=== PATIENT | female | born 1980 | race Caucasian/White ===

== ENCOUNTER 2024-08-05 21:35 | Emergency (ER) | payer OTHER, SELFPAY ==
--- OUTSIDE RECORDS SUMMARY | 2024-08-05 21:37 | XMS_ITS | Clinical Summary ---
Author Organization [facility] Address [address] [place] [address] Care Team Providers Care Rn Hematology Name Role Phone Clarisse Brewer MD Primary Care Provider Allergies Active Allergy Reactions Criticality Noted Date Comments Codeine Rash 04/29/2010 Medications multivitamin (MVI) tablet Take 1 tablet by mouth once daily. 0 06/27/2018 Active FLUoxetine 20 mg capsuleIndicati ons:MDD (major depressive disorder), recurrent episode, moderate (HC),CLINT (generalized anxiety disorder) Take 1 Capsule (20 mg) by mouth once daily in the morning. 100 Capsule 3 05/01/2024 Active FLUoxetine 40 mg capsuleIndicati ons:MDD (major depressive disorder), recurrent episode, moderate (HC),CLINT (generalized anxiety disorder) Take 1 Capsule (40 mg) by mouth once daily in the morning. 100 Capsule 3 06/18/2024 Active Active Problems Problem Noted Date Diagnosed Date Depression, recurrent 06/27/2018 Anxiety 06/27/2018 Vegetarian diet 05/22/2016 Encounters Date Type Department Care Team Description 08/03/2024 Travel 06/18/2024 E-Visit [facility] [address] [place] [address] Clarisse Brewer MD Questionnaire Submission from Last 3 Months Immunizations Immunization Administration Dates Next Due COVID-19 vaccine ([employer] 30mcg/0.3mL) STARLA Ceja 06/19/2020,05/29/2020 Influenza, IIV3 (Age >=3 years) 02/07/2010 Influenza, IIV4 10/23/2019 TD, UNSPECIFIED 11/16/2001 Td (Age >=7 Years) 11/16/2001 Td, Preservative Free (age >= 7 Years) 2 Tdap 01/28/2020,08/23/2018 Tuberculin (PPD) 12/23/2009 Family History Medical History Relation Name Comments No Known Problems Daughter Nova Alcoholism Father COPD Maternal Grandfather Emphyse ma Dementia Maternal Grandfather Hyperlipidemia Maternal Grandfather Hyperlipidemia Maternal Grandmother Hypertension Maternal Grandmother Lung cancer Maternal Grandmother Colitis Mother Hyperlipidemia Mother Hypertension Mother Vertigo Mother Unknown Paternal Grandfather Unknown Paternal Grandmother Asthma Sister 1 May Migraines Sister 1 May Alcoholism Sister 2 Kristi Mental illness Sister 2 Kristi Cancer-breast No Family History Cancer-ovarian No Family History Relation Name Status Comments Daughter Nova Alive Father Maternal Grandfather Maternal Grandmother Mother Alive Paternal Grandfather Other Paternal Grandmother Other Sister 1 May Alive Sister 2 Kristi Alive Social History Tobacco Use Types Packs/Day Years Used Date Smoking Tobacco: Former Cigarettes 0.3 4 1 999 - 2002 Smokeless Tobacco: Never Tobacco Cessation:Counseling Given: Yes Alcohol Use Standard Drinks/Week Comments Not Currently 0 (1 standard drink = 0.6 oz pur e alcohol) Sober since 2006 PHQ-2 Answer Date Recorded PHQ-2 TOTAL SCORE 2 06/18/2024 Social Connections Answer Date Recorded Do you often feel lonely or isolated from those around you? 0 12/02/2023 Financial Resource Strain Answer Date R ecorded Difficulty of Paying Living Expenses 3 12/02/2023 Difficulty of Paying Living Expenses Not on file 12/02/2023 Food Insecurity Answer Date Recorded Do you worry your food will run out before you are able to buy more? 1 12/02/2023 Transportation Needs Answer Date Record ed Does lack of transportation keep you from medica l appointments? 1 12/02/2023 Does lack of transportation keep you from work, meetings or getting things that you need? 1 12/02/2023 Housing Stability Answer Date Recorded What is your housing situation today? 1 12/02/2023 Utilities Answer Date Recorded Do you have trouble paying f or utilities (for example, heat, electricity, water, phone)? 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 file Not on file Not on file Obstetrics History Para Term AB IAB SAB Ectopic Multiple Livin g Live Births 4 4 4 Date Outcome GA Total Labor Labor/2nd/3rd Weight Sex Type Anes PTL Aby A1 A5 Name Clin 009 Term F Vag Nova 013 Term F Vag Micaela Comments:Serrogate pre gnancy for another family 015 Term M Vag Carlos Comments:Serrogate pre gnancy for another family 021 Term M Vag Mihai Complications:HELLP syndrome Comments:Serrogate pre gnancy for another family Last Filed Vital Signs Vital Sign Reading Time Taken Comments Blood Pressure 100/62 05/01/2024 2:56 PM CDT Pulse 68 05/01/2024 2:56 PM CDT Temperature 36.3 C (97.4 F) 12/02/2023 4:04 PM CDT Respiratory Rate 16 12/02/2023 4:04 PM CDT Oxygen Saturation 97% 05/01/2024 2:56 PM CDT Inhaled Oxygen Concentration - - Weight 67.9 kg (149 lb 12.8 oz) 05/01/2024 2:56 PM CDT Height 162.6 cm (5' 4) 05/01/2024 2:56 PM CDT Body Mass Index 25.71 05/01/2024 2:56 PM CDT Plan of Treatment Upcoming Encounters Date Type Department Care Team (Late st Contact Info) Description 08/08/2024 10:40 AM CDT Office Visit [facility] [address] [place] [address] [place] [address] [place] [address] 10/26/2024 4:00 PM CDT Office Visit [facility] [address] [place] [address] [place] [address] [place] [address] Health Maintenance Due Date Last Done Comments Hepatitis B series for 19+ (1 of 3 - 19+ 3-dose series) 1997 COVID-19 vaccine series ( season) 2023 12/27/2020, 06/19/2020, 05/29/2020 Influenza Vaccine (Season Ended) 2024 10/23/2019, 02/07/2010 Mammogram for age 45-75 03/12/2025 03/12/19, 12/31/2022, 12/29/2021, Additional history exists BMI (ht and wt on same day) for age 18+ 05/01/2025 05/01/2024, 03/05/2024, 01/26/2023, Additional history exists Depression screening for age 12+ 06/18/2025 06/18/2024, 05/01/2024, 03/12/2024, Additional history exists Pap test for age 21-65 11/17/2025 , 11/17/2020, 05/21/2016 Fecal testing sDNA-FIT (Cologuard) for age 45-75 05/18/2026 05/19/2023 Lipids for age 45-75 05/01/2029 05/01/2024, 01/26/2023, 12/08/2021, Additional history exists Tetanus booster 01/27/2030 01/28/2020, 08/07, 02/07/2014 (Completed outside of [facility]), Additional history exists Tdap Completed 01/28/2020, 08/07, 02/07/2014 (Completed outside of [facility]) HIV for age 15-65 Completed 01/26/2023 Hepatitis C screening for age 18-79 Completed 01/26/2023 Pneumococcal series for age 6-49 Aged Out No longer eligible based on patient's age to complete this topic Procedures Procedure Name Priority Date/Time Associated Diagnosis Comments LIPID PANEL W REFLEX MEASURED LDL Routine 05/01/2024 3:11 PM CDT Screening, lipid XR MAMMO OTONIEL BILAT SCREEN Routine 03/12/2024 4:53 PM TIRE REPAIRMAN Visit for screening mammogram SDNA-FIT EXTERNAL (COLOGUARD) Routine 05/19/2023 7:58 PM CDT Screen for colon cancer ANTI HIV 1/2 Routine 01/26/2023 2:22 PM TIRE REPAIRMAN Encounter for screening for HIV ANTI HCV Routine 01/26/2023 2:22 PM TIRE REPAIRMAN Need for hepatitis C screening test HPV HIGH RISK Routine 11/17/2020 4:30 PM CDT Pap smear for cervical cancer screening from Last 3 Months or Most Recently Relevant to Health Maintenance Results * (ABNORMAL) LIPID PANEL W REFLEX MEASURED LDL (05/01/2024 3:11 PM CDT) [facility] CHOLESTEROL, TOTAL 183 <200 mg/dL [facility] HDL CHOLESTEROL 54 > OR = 50 mg/dL [facility] TRIGLYCERIDES 165(H) <150 mg/dL [facility] LDL-CHOLESTEROL 103(H) mg/dL (calc) [facility] Comment: Reference range: <100 Desirable range <100 mg/dL for primary prevention; <70 mg/dL for patients with CHD or diabetic patients with > or = 2 CHD risk factors. LDL-C is now calculated using the Shmuel-Srinath calculation, which is a validated novel method providing better accuracy than the Friedewald equation in the estimation of LDL-C. Shmuel FULLER et al. MARIAH. 2013;310(19): 1832-7099 (http://education.Snip2Code/faq/ZDZ888) CHOL/HDLC RATIO 3.4 <5.0 (calc) [facility] NON HDL CHOLESTEROL 129 <130 mg/dL (calc) [facility] Comment: For patients with diabetes plus 1 major ASCVD risk factor, treating to a non-HDL-C goal of <100 mg/dL (LDL-C of <70 mg/dL) is considered a therapeutic option. Blood BLOOD SPECIMEN / Unknown 05/01/2024 3:11 PM CDT 05/01/2024 3:11 PM CDT Clarisse Brewer MD CHEMISTRY Final R esult [facility] [address] [place] [address], [facility] [address] [place] [address] * XR MAMMO OTONIEL BILAT SCREEN (03/12/2024 4:53 PM TIRE REPAIRMAN) Anatomical Region Laterality Modality BREASTS, Breast Left, Breast Right Bilateral Mammography Impressions 03/13/2024 8:33 AM TIRE REPAIRMAN There is no radiographic evidence for malignancy. Recommend annual mammograms. MAMMOGRAM ASSESSMENT: ACR 1 Negative PATIENTS: You will also receive a letter with your examination results in an easy to read format. If you have questions about your results, please contact your referring provider. Narrative 03/13/2024 8:33 AM TIRE REPAIRMAN For Patients: As a result of the Century Cures Act, medical imaging exams and procedure reports are released immediately into your electronic medical record. You may view this report before your referring provider. If you have questions, please contact your health care provider. XR MAMMO OTONIEL BILAT SCREEN [[id number]] CLINICAL HISTORY: This is an asymptomatic 43 y.o. patient. INDICATION FOR EXAM: Mammogram Screening. TECHNIQUE: CC & MLO views were obtained. This study was evaluated with the assistance of Computer-Aided Detection. Breast Tomosynthesis was used in interpretation. COMPARISON FILM: Yes 12/31/22 FINDINGS: The breasts are extremely dense, which lowers the sensitivity of mammography. There are no dominant masses, suspicious micro calcifications or areas of architectural distortion. Itzel BRAVO MAMMO Final Result * SDNA-FIT EXTERNAL (COLOGUARD) (05/19/2023 7:58 PM CDT) Pathologist [facility] NONINV COLON CA DNA+OCC BLD SCRN STL-IMP Negative Negative 06/02/2023 4:25 AM CDT [facility] (CLIA #:[id number]) Comment: NEGATIVE TEST RESULT. A negative Cologuard result indicates a low likelihood that a colorectal cancer (CRC) or advanced adenoma (adenomatous polyps with more advanced pre-malignant features) is present. The chance that a person with a negative Cologuard test has a colorectal cancer is less than 1 in 1500 (negative predictive value >99.9%) or has an advanced adenoma is less than 5.3% (negative predictive value 94.7%). These data are based on a prospective cross-sectional study of 10,000 individuals at average risk for colorectal cancer who were screened with both Cologuard and colonoscopy. (Endy Souza al, N Engl J Med 2014;370(14):9487-0786) The normal value (reference range) for this assay is negative. COLOGUARD RE-SCREENING RECOMMENDATION: Periodic colorectal cancer screening is an important part of preventive healthcare for asymptomatic individuals at average risk for colorectal cancer. Following a negative Cologuard result, the [place] [employer] and U.S. Multi-Society Task Force screening guidelines recommend a Cologuard re-screening interval of 3 years. References: [place] [employer] Guideline for Colorectal Cancer Screening: https://www.cancer.org/cancer/dlddp-egaowd-hkwsqf/eiaoegclp-huipfkolc-dnvmuqx/ac s-rec ommendations.html.; Kenneth DK, Vania CR, Josse WrightK, Colorectal Cancer Screening: Recommendations for Physicians and Patients from the U.S. Multi-Society Task Force on Colorectal Cancer Screening , Am J Gastroenterology 2017; 112:2131-9538. TEST DESCRIPTION: Composite algorithmic analysis of stool DNA-biomarkers with hemoglobin immunoassay. Quantitative values of individual biomarkers are not reportable and are not associated with individual biomarker result reference ranges. Cologuard is intended for colorectal cancer screening of adults of either sex, 45 years or older, who are at average-risk for colorectal cancer (CRC). Cologuard has been approved for use by the U.S. FDA. The performance of Cologuard was established in a cross sectional study of average-risk adults aged 50-84. Cologuard performance in patients ages 45 to 49 years was estimated by sub-group analysis of near-age groups. Colonoscopies performed for a positive result may find as the most clinically significant lesion: colorectal cancer [4.0%], advanced adenoma (including sessile serrated polyps greater than or equal to 1cm diameter) [20%] or non- advanced adenoma [31%]; or no colorectal neoplasia [45%]. These estimates are derived from a prospective cross-sectional screening study of 10,000 individuals at average risk for colorectal cancer who were screened with both Cologuard and colonoscopy. (Endy Souza al, N Engl J Med 2014;370(14):0917-7388.) Cologuard may produce a false negative or false positive result (no colorectal cancer or precancerous polyp present at colonoscopy follow up). A negative Cologuard test result does not guarantee the absence of CRC or advanced adenoma (pre-cancer). The current Cologuard screening interval is every 3 years. ([place] [employer] and U.S. Multi-Society Task Force). Cologuard performance data in a 10,000 patient pivotal study using colonoscopy as the reference method can be accessed at the following location: www.Merge.rs AG/results. Additional description of the Cologuard test process, warnings and precautions can be found at www.OpenbucksogAtlas Wearablesrd.Petflow. Stool specimen (specimen) (Rectum) 05/19/2023 7:58 PM CDT 05/21/2023 10:48 AM CDT Clarisse Brewer MD URINE Final R esult [facility] (CLIA #:[id number]) [place] [address], * ANTI HCV (01/26/2023 2:22 PM TIRE REPAIRMAN) HEPATITIS C ANTIBODY Non-Reacti ve Non-React felix 01/26/2023 9:58 PM TIRE REPAIRMAN [facility] Comment:Please note, per www .CDC.gov: If a patient is known to be at high risk of HCV infection, or is symptomatic, and the physician's suspicion of HCV infection is high, HCV RNA testing is often employed and is of diagnostic value, even after an initial negative anti-HCV test result. Blood BLOOD SPECIMEN / Unknown Venipuncture / Unknown 01/26/2023 2:22 PM TIRE REPAIRMAN 01/26/2023 2:31 PM TIRE REPAIRMAN Clarisse Brewer MD SEND OUTS Final R esult Performing Organization Address [facility] Co de Phone Number [facility] [address] [place] [address], * ANTI HIV 1/2 (01/26/2023 2:22 PM TIRE REPAIRMAN) Pathologist [facility] HIV-1/HIV-2 SCREEN Non-Reacti ve Non-Reacti ve 01/26/2023 11:46 PM TIRE REPAIRMAN [facility] Comment:HIV-1 p24 and HIV-1/ HIV-2 Ab Not Detected. Blood BLOOD SPECIMEN / Unknown Venipuncture / Unknown 01/26/2023 2:22 PM TIRE REPAIRMAN 01/26/2023 2:31 PM TIRE REPAIRMAN Clarisse Brewer MD SEND OUTS Final R esult Performing Organization Address [facility] de Phone Number [facility] [address] [place] [address], [place] * HPV HIGH RISK (11/17/2020 4:30 PM CDT) TYPE 16 Negative Negative 11/21/2020 5:33 AM CDT [facility] TYPE 18 Negative Negative 11/21/2020 5:33 AM CDT [facility] OTHER HIGH RISK TYPES Negative Negative 11/21/2020 5:33 AM CDT [facility] Other (Cervical) Non-Blood / Unknown 11/17/2020 4:30 PM CDT 11/18/2020 6:31 PM CDT Narrative [facility] - 11/21/2020 5:33 AM CDT HPV types 16, 18, 31, 33, 35, 39, 45, 51, 52, 56, 58, 59, 66 and 68 DNA were undetectable or below the pre-set threshold. Methodology: Vito Jagdeep 4800 HPV Test us Clarisse Brewer MD MICROBIOLOGY Final R esult [facility] [address] [place] [address], [place] from Last 3 Months or Most Recently Relevant to Health Maintenance Insurance [facility] Advance Directives * Full Code (Latest Code Status on File) Date Activated Date Inactivated Comments 10/11/2013 7:55 AM 10/11/2013 2:24 PM Care Teams Rn Hematology Relationship Specialty [place] [address] [place] [address] PCP - General Family Practice 12/08/21
--- OUTSIDE RECORDS SUMMARY | 2024-08-05 21:37 | XMS_ITS | Encounter Summary ---
Author Organization [facility] Address [address] [place] [address] Care Team Providers Care Risk Tech Name Role Phone Bernadette Saldana MD Primary Care Provider Alan Shah MD Unavailable [phone] Jason Shearer MD Unavailable [phone] Charlette Garcia MD Unavailable [phone] Mari Conklin MD Unavailable [phone] Reason for Visit * Reason Onset Date Comments MyChart Communication 02/06/2020 Encounter Details Date Type Department Care Team (Late st Contact Info) Description 02/06/2020 MyC Medical Advice [facility] [address] [place] [address] Chey Ta MD [address] [place], [place] [address] MyChart Communication Social History Tobacco Use Types Packs/Day Years Used Date Smoking Tobacco: Former Cigarettes Q uit: 06/28/2007 Smokeless Tobacco: Former Alcohol Use Standard Drinks/Week Comments No 0 (1 standard drink = 0.6 oz pur e alcohol) PHQ-2 Answer Date Recorded PHQ-2 Score 0 10/23/2019 Comments Yes Sex and Gender Information Value Date Recorded Sex Assigned at Not on file Legal Sex Female 4:52 AM WEB PRESS ROLL TENDER Gender Identity Not on file Sexual Orientation Lesbian 10/16/2019 9: 45 AM CDT COVID-19 Exposure Response Date Recorded In the last month, have you been in contact with someone who was confirmed or suspected to have Coronavirus / COVID-19? No / Unsure 01/28/2020 3:46 PM WEB PRESS ROLL TENDER documented as of this encounter Miscellaneous Notes * Telephone Encounter - Jason Shearer MD - 02/06/2020 3:54 PM CST Advise Pt that her BS log shows all normal BS's. Therefore she can be considered as not being GDM. PRESS ROLL TENDER * Telephone Encounter - Kiara Belcher RN - 02/06/2020 3:27 PM CST Please see mychart for glucose log from home. Copied from recent note: no 1hr glucose due to syncope when drinks it, will do FBS and 1hr PP for next couple weeks and review at next OB appt to see if needs to get formal DM Ed consult or can stop glucose checks. Kiara Belcher RN PRESS ROLL TENDER documented in this encounter Plan of Treatment Not on file documented as of this encounter Visit Diagnoses Diagnosis Multigravida of advanced maternal age in third trimester resulting from in vitro fertilization in third trimester state, gestational carrier documented in this encounter Additional Health Concerns Infection Onset Date Last Indicated Resolved Time COVID-19 02/20/2020 02/20/2020 03/12/2020 11:3 9 PM WEB PRESS ROLL TENDER documented as of this encounter Care Teams Risk Tech Relationship Specialty Start Date End Date Bernadette Saldana MD [address] [place], [place] [address] PCP - General 10/19/07 Alan Shah MD [address] [place] [address] Assigned OBGYN Provider 12/23/19 Jason Shearer MD [address] [address] Assigned OBGYN Provider 03/02/20 Charlette Garcia MD [address], [address] [address] Assigned OBGYN Provider 03/09/20 Mari Conklin MD [address] [place] [address] Assigned OBGYN Provider 09/26/21 documented as of this encounter
--- OUTSIDE RECORDS SUMMARY | 2024-08-05 21:37 | XMS_ITS | Encounter Summary ---
Author Organization [facility] Address [address] [place] [address] Care Team Providers Care Developer Programmer Analyst Name Role Phone Bernadette Saldana MD Primary Care Provider Alan Shah MD Unavailable [phone] Jason Shearer MD Unavailable [phone] Charlette Garcia MD Unavailable [phone] Mari Conklin MD Unavailable [phone] Encounter Details Date Type Department Care Team (Late st Contact Info) Description 02/26/2020 MyC Medical Advice [facility] Women[facility] [address] [place] [address] Charlette Garcia MD [address], [facility] [address] [place], [place] [id number] Social History Tobacco Use Types Packs/Day Years Used Date Smoking Tobacco: Former Cigarettes Q uit: 06/28/2007 Smokeless Tobacco: Former Alcohol Use Standard Drinks/Week Comments No 0 (1 standard drink = 0.6 oz pur e alcohol) PHQ-2 Answer Date Recorded PHQ-2 Score 0 10/23/2019 Comments Yes Sex and Gender Information Value Date Recorded Sex Assigned at Not on file Legal Sex Female 4:52 AM FACILITY PRACTICE SPECIALIST Gender Identity Not on file Sexual Orientation Lesbian 10/16/2019 9: 45 AM CDT COVID-19 Exposure Response Date Recorded In the last month, have you been in contact with someone who was confirmed or suspected to have Coronavirus / COVID-19? No / Unsure 01/28/2020 3:46 PM FACILITY PRACTICE SPECIALIST documented as of this encounter Plan of Treatment Not on file documented as of this encounter Visit Diagnoses Not on filedocumented in this encounter Additional Health Concerns Infection Onset Date Last Indicated Resolved Time COVID-19 02/20/2020 02/20/2020 03/12/2020 11:3 9 PM FACILITY PRACTICE SPECIALIST documented as of this encounter Care Teams Developer Programmer Analyst Relationship Specialty Start Date End Date Bernadette Saldana MD [address] [address] PCP - General 10/19/07 Alan Shah MD [address] [address] Assigned OBGYN Provider 12/23/19 Jason Shearer MD [address] [address] Assigned OBGYN Provider 03/02/20 Charlette Garcia MD [address], [address] [address] Assigned OBGYN Provider 03/09/20 Mari Conklin MD [address] [place], [place] [id number] Assigned OBGYN Provider 09/26/21 documented as of this encounter
--- OUTSIDE RECORDS SUMMARY | 2024-08-05 21:37 | XMS_ITS | Encounter Summary ---
Author Organization [facility] Address [address] [place] [address] Care Team Providers Care Marine Structural Welder Name Role Phone Bernadette Saldana MD Primary Care Provider Charlette Garcia MD Unavailable [phone] Mari Conklin MD Unavailable [phone] Encounter Details Date Type Department Care Team (Late st Contact Info) Description 03/31/2020 MyC Medical Advice [facility] [address] [place] [address] Charlette Garcia MD [address] [facility], [address] [place], [place] [address] Social History Tobacco Use Types Packs/Day Years Used Date Smoking Tobacco: Former Cigarettes Q uit: 06/28/2007 Smokeless Tobacco: Former Alcohol Use Standard Drinks/Week Comments No 0 (1 standard drink = 0.6 oz pur e alcohol) PHQ-2 Answer Date Recorded PHQ-2 Score 0 10/23/2019 Comments Yes Sex and Gender Information Value Date Recorded Sex Assigned at Not on file Legal Sex Female 4:52 AM HAND BINDER STRIPPER Gender Identity Not on file Sexual Orientation Lesbian 10/16/2019 9: 45 AM CDT COVID-19 Exposure Response Date Recorded In the last month, have you been in contact with someone who was confirmed or suspected to have Coronavirus / COVID-19? No / Unsure 03/28/2020 8:21 AM HAND BINDER STRIPPER documented as of this encounter Miscellaneous Notes * Telephone Encounter - Madeleine Dawkins - 04/02/2020 9:48 AM CST Francie will get her employer to fax the FMLA form so that we can fill it out and sign Madeleine Dawkins CMA BINDER STRIPPER documented in this encounter Plan of Treatment Not on file documented as of this encounter Visit Diagnoses Not on filedocumented in this encounter Care Teams Marine Structural Welder Relationship Specialty Start Date End Date Bernadette Saldana MD [address] [place] [address] PCP - General 10/19/07 Charlette Garcia MD [address] [address] Assigned OBGYN Provider 03/09/20 Mari Conklin MD [address] [place] [address] Assigned OBGYN Provider 09/26/21 documented as of this encounter
--- OUTSIDE RECORDS SUMMARY | 2024-08-05 21:37 | XMS_ITS | Encounter Summary ---
Author Organization [facility] Address [address] [place] [address] Care Team Providers Care Health Communications Specialist Name Role Phone Bernadette Saldana MD Primary Care Provider Charlette Garcia MD Unavailable [phone] Mari Conklin MD Unavailable [phone] Encounter Details Date Type Department Care Team (Late st Contact Info) Description 04/16/2020 MyC Medical Advice [facility] [place] [address] [place] [address] Charlette Garcia MD [address] [facility], [address] [place], [place] [id number] Social History Tobacco Use Types Packs/Day Years Used Date Smoking Tobacco: Former Cigarettes Q uit: 06/28/2007 Smokeless Tobacco: Former Alcohol Use Standard Drinks/Week Comments No 0 (1 standard drink = 0.6 oz pur e alcohol) PHQ-2 Answer Date Recorded PHQ-2 Score 0 10/23/2019 Comments Yes Sex and Gender Information Value Date Recorded Sex Assigned at Not on file Legal Sex Female 4:52 AM PUBLIC WORKS LABORER Gender Identity Not on file Sexual Orientation Lesbian 10/16/2019 9: 45 AM CDT COVID-19 Exposure Response Date Recorded In the last month, have you been in contact with someone who was confirmed or suspected to have Coronavirus / COVID-19? No / Unsure 04/18/2020 8:23 AM PUBLIC WORKS LABORER documented as of this encounter Plan of Treatment Not on file documented as of this encounter Visit Diagnoses Not on filedocumented in this encounter Care Teams Health Communications Specialist Relationship Specialty Start Date End Date Bernadette Saldana MD [address] [place] [address] PCP - General 10/19/07 Charlette Garcia MD [address], [address] [address] Assigned OBGYN Provider 03/09/20 Mari Conklin MD [address] [place] [address] Assigned OBGYN Provider 09/26/21 documented as of this encounter
--- OUTSIDE RECORDS SUMMARY | 2024-08-05 21:37 | XMS_ITS | Clinical Summary ---
Author Organization [facility] Address [address] [place] [address] Care Team Providers Care Indoor Sports Centre Manager Name Role Phone Bernadette Saldana MD Primary Care Provider Allergies No known active allergies Medications Vit-Fe Fumarate-FA ( VITAMIN) 27-0.8 MG TABS Active NIFEdipine ER OSMOTIC (ADALAT CC) 30 MG 24 hr tabletIndication s:Preeclampsia in period Take 1 tablet (30 mg) by mouth daily 30 tablet 1 04/30/2020 Active Active Problems Problem Noted Date Diagnosed Date Preeclampsia in period 04/27/2020 Hemolysis, elevated liver en zymes, and low platelet (HELLP) syndrome during , delivered, with complication 04/27/2020 Indication for care in labor or delivery 021 Uterine size-date discrepancy in third trimester 03/07/2020 Clinical diagnosis of COVID-19 03/07/2020 Low-lying placenta 12/03/2019 conceived through in vitro fertilizati on 12/03/2019 AMA (advanced maternal age) multigravida 35+ state, gestational carrier 12/03/2019 Supervision of other normal , antepartu m 10/23/2019 CARDIOVASCULAR SCREENING; LDL GOAL LESS THAN 160 12/07/2009 Infertility 11/23/2007 Immunizations Immunization Administration Dates Next Due Influenza (IIV3) PF 02/07/2010 Influenza Vaccine >6 months,quad, PF 10/23/2019 Mantoux Tuberculin Skin Test 12/23/2009 TD,PF 7+ (Tenivac) 07/08/2001,02/07/2001 TDAP (Adacel,Boostrix) 01/28/2020 TDAP Vaccine (Adacel) 08/23/2018 Tdap (Adult) Unspecified Formulation 11/16/2001 Family History Medical History Relation Comments Alcohol/Drug Father Alcohol/Drug Maternal Grandfather Alzheimer Disease Maternal Grandfather Hypertension Maternal Grandfather Alzheimer Disease Maternal Grandmother Osteoporosis Maternal Grandmother Hypertension Mother Lipids Mother Relation Status Comments Daughter Alive Father Alive Maternal Grandfather Maternal Grandmother Mother Alive Paternal Grandfather Paternal Grandmother Sister 1 Alive Sister 2 Alive Social History Tobacco Use Types Packs/Day Years Used Date Smoking Tobacco: Former Cigarettes Q uit: 06/28/2007 Smokeless Tobacco: Former Tobacco Cessation:Counseling Given: No Alcohol Use Standard Drinks/Week Comments No 0 (1 standard drink = 0.6 oz pur e alcohol) PHQ-2 Answer Date Recorded PHQ-2 Score 0 10/23/2019 [place] Depression Scale Answer Date Recorded [place] Depression Score 1 04/22/2020 Last EPDS Self Harm Result Not on file 04/22 Adolescent Education Answer Date Record ed Getting School Help Needed Not on file 11/24 Comments Unknown Sex and Gender Information Value Date Recorded Sex Assigned at Not on file Legal Sex Female 4:52 AM DIRECT SALES REPRESENTATIVE Gender Identity Not on file Sexual Orientation Lesbian 10/16/2019 9: 45 AM CDT Last Filed Vital Signs Vital Sign Reading Time Taken Comments Blood Pressure 108/72 10/01/2021 7:02 PM CDT Pulse 68 10/01/2021 7:02 PM CDT Temperature 36.9 C (98.5 F) 10/01/2021 7:02 PM CDT Respiratory Rate 16 04/29/2020 9:00 AM CDT Oxygen Saturation 97% 10/01/2021 7:02 PM CDT Inhaled Oxygen Concentration - - Weight 62.6 kg (138 lb) 10/01/2021 7:02 PM CDT Height 162.6 cm (5' 4) 04/27/2020 3:05 PM CDT Body Mass Index 23.69 04/27/2020 3:05 PM CDT Plan of Treatment Health Maintenance Due Date Last Done Comments ADVANCE CARE PLANNING 1978 ANNUAL REVIEW OF HM ORDERS 1978 CT COLONOGRAPHY 1978 FIT 1978 FLEX SIG 1978 MAMMO SCREENING 1978 sDNA (Cologuard) 1978 COLONOSCOPY 1988 COLORECTAL CANCER SCREENING 1988 HEPATITIS B VACCINE (1 of 3 - 19+ 3-dose series) 1997 LIPID 2018 DIABETES SCREENING 04/30/2023 04/29/2020, 0 04/28/2020, 04/27/2020, Additional history exists COVID-19 VACCINE ( season) 2023 12/27/2020, 06/19/2020, 05/29/2020 PHQ-2 (once per calendar year) 2024 10/23/2019 INFLUENZA VACCINE (Season Ended) 2024 10/23/2019, 02/07/2010 YEARLY PREVENTIVE VISIT 05/01/2025 05/02/19, 01/26/2023, 12/08/2021, Additional history exists HPV TEST 11/17/2025 11/17/2020, 10/23/2019 PAP 11/17/2025 11/17/2020, 10/08, 05/08/2016, Additional history exists ZOSTER VACCINE (1 of 2) 2028 DTAP/TDAP/TD VACCINE (5 - Td or Tdap) 01/27/2030 01/28/2020, 08/23/2018, 11/16/2001, Additional history exists HEPATITIS C SCREENING Completed 11/14/2018 HIV SCREENING Completed 10/23/2019, 11/14/2018 HPV VACCINE Aged Out No longer eligi ble based on patient's age to complete this topic MENINGITIS VACCINE Aged Out No longer eligible based on patient's age to complete this topic PNEUMOCOCCAL VACCINE: PEDIATRICS (0 to 5 YEARS) AND AT-RISK PATIENTS (6 to 49 YEARS) Aged Out No longer eligible based on patient's age to complete this topic Procedures Procedure Name Priority Date/Time Associated Diagnosis Comments COMPREHENSIVE METABOLIC PANEL Routine 04/29/2020 7:08 AM CDT HIV ANTIGEN ANTIBODY COMBO Routine 10/23/2019 3:30 PM CDT Supervision of other normal , antepartum HPV HIGH RISK TYPES DNA CERVICAL Routine 10/23/2019 3:05 PM CDT Screening for cervical cancer PAP IMAGED THIN LAYER SCREEN Routine 10/23/2019 2:57 PM CDT Screening for cervical cancer HEPATITIS C (HIM EXTERNAL RESULT) Routine 11/14/2018 from Last 3 Months or Most Recently Relevant to Health Maintenance Results * (ABNORMAL) Comprehensive metabolic panel (04/29/2020 7:08 AM CDT) Sodium 141 133 - 144 mmol/L 04/29/2020 7:31 AM [facility] Potassium 4.7 3.4 - 5.3 mmol/L 04/29/2020 7:31 AM [facility] Chloride 114(H) 94 - 109 mmol/L 04/29/2020 7:31 AM [facility] Carbon Dioxide 22 20 - 32 mmol/L 04/29/2020 7:57 AM [facility] Anion Gap 5 3 - 14 mmol/L 04/29/2020 7:57 AM [facility] Glucose 75 70 - 99 mg/dL 04/29/2020 7:57 AM [facility] Urea Nitrogen 12 7 - 30 mg/dL 04/29/2020 7:57 AM [facility] Creatinine 0.80 0.52 - 1.04 mg/dL 04/29/2020 7:57 AM [facility] GFR Estimate >90 >60 mL/min/{1. 73_m2} 04/29/2020 7:57 AM [facility] Comment: Non GFR Calc Starting 01/24/2018, serum creatinine based estimated GFR (eGFR) will be calculated using the Chronic Kidney Disease Epidemiology Collaboration (CKD-EPI) equation. GFR Estimate If Black >90 >60 mL/min/{1. 73_m2} 04/29/2020 7:57 AM [facility] Comment: GFR Calc Starting 01/24/2018, serum creatinine based estimated GFR (eGFR) will be calculated using the Chronic Kidney Disease Epidemiology Collaboration (CKD-EPI) equation. Calcium 7.5(L) 8.5 - 10.1 mg/dL 04/29/2020 7:57 AM CDT [facility] Bilirubin Total 0.3 0.2 - 1.3 mg/dL 04/29/2020 7:57 AM CDT [facility] Albumin 2.5(L) 3.4 - 5.0 g/dL 04/29/2020 7:57 AM CDT [facility] Protein Total 5.6(L) 6.8 - 8.8 g/dL 04/29/2020 7:57 AM CDT [facility] Alkaline Phosphatase 99 40 - 150 U/L 04/29/2020 7:57 AM T [facility] ALT 101(H) 0 - 50 U/L 04/29/2020 7:57 AM CDT [facility] AST 24 0 - 45 U/L 04/29/2020 7:57 AM CDT [facility] Blood specimen (specimen) 04/29/2020 7:08 AM CDT 04/29/2020 7:09 AM CDT us Elyssa Morales DO LAB - BLOOD ORDERABLES Fi nal Result Performing Organization Address [facility]/ZIP Co de Phone Number [facility] [address] [place] [id number] [phone] * HIV Antigen Antibody Combo (10/23/2019 3:30 PM CDT) HIV Antigen Antibody Combo Nonreactive NR^Nonrea ctive 10/24/2019 5:32 PM CDT [facility] Comment:HIV-1 p24 Ag & HIV-1 /HIV-2 Ab Not Detected Blood specimen (specimen) 10/23/2019 3:30 PM CDT 10/23/2019 3:31 PM CDT us Charlette Vick MD LAB - BLOOD ORDERABLES Fi nal Result Performing Organization Address City/[facility]/ZIP Co de Phone Number [facility] [address] [place] [address] * HPV High Risk Types DNA Cervical (10/23/2019 3:05 PM CDT) HPV Source SurePath 10/23/2019 2:58 PM CDT [facility] HPV 16 DNA Negative NEG^Nega tive 10/30/2019 4:08 PM CDT [facility] HPV 18 DNA Negative NEG^Nega tive 10/30/2019 4:08 PM CDT [facility] Other HR HPV Negative NEG^Nega tive 10/30/2019 4:08 PM CDT [facility] Final Diagnosis This patient's sample is negative for HPV DNA. 10/30/2019 4:08 PM CDT [facility] Comment: This test was developed and its performance characteristics determined by the [facility], [facility]. It has not been cleared or approved by the FDA. The laboratory is regulated under CLIA as qualified to perform high-complexity testing. This test is used for clinical purposes. It should not be regarded as investigational or for research. (Note) METHODOLOGY: The Vito lynda 4800 system uses automated extraction, simultaneous amplification of HPV (L1 region) and beta-globin, followed by real time detection of fluorescent labeled HPV and beta globin using specific oligonucleotide probes . The test specifically identifies types HPV 16 DNA and HPV 18 DNA while concurrently detecting the rest of the high risk types (31, 33, 35, 39, 45, 51, 52, 56, 58, 59, 66 or 68). COMMENTS: This test is not intended for use as a screening device for women under age 30 with normal cervical cytology. Results should be correlated with cytologic and histologic findings. Close clinical followup is recommended. Specimen Description Cervical Cells 10/23/2019 2:58 PM CDT [facility] Cervical Cells 10/23/2019 3: 05 PM CDT 10/23/2019 3:39 PM CDT us Charlette Vick MD LAB - BLOOD ORDERABLES Fi nal Result [facility] [address] [place] [address] [address] * Pap imaged thin layer screen with HPV - recommended age 30 - 65 (10/23/2019 2:57 PM CDT) PAP NIL COPATH Copath Report Patient Name: GERALDINE MACDONALD MR#: [id number] Specimen #: [id number] Collected: 10/23/2019 Received: 10/25/2019 Reported: 10/27/2019 09:14 Ordering Phy(s): CHARLETTE VICK For improved result formatting, select 'View Enhanced Report Format' under Linked Documents section. SPECIMEN/STAIN PROCESS: Pap imaged thin layer prep screening (Surepath, FocalPoint with guided screening) Pap-Cyto x 1, HPV ordered x 1 SOURCE: Cervical, endocervical Pap imaged thin layer prep screening (Surepath, FocalPoint with guided screening) SPECIMEN ADEQUACY: Satisfactory for evaluation. -Transformation zone component absent. CYTOLOGIC INTERPRETATION: Negative for intraepithelial lesion or malignancy Electronically signed out by: DAVIDE Winn (ASCP) CLINICAL HISTORY: , A previous normal pap Date of Last Pap: 06/27/09, Papanicolaou Test Limitations: Cervical cytology is a screening test with limited sensitivity; regular screening is critical for cancer prevention; Pap tests are primarily effective for the diagnosis/preventi on of squamous cell carcinoma, not adenocarcinomas or other cancers. COLLECTION SITE: Client: [facility] Location: OB (R) The technical component of this testing was completed at the [facility], with the professional component performed at the [facility], [address] [place] [phone] ([phone]) ZEN Cytologic material (specimen) 10/23/2019 2:57 PM CDT 10/25/2019 8:28 AM CDT us Charlette Vick MD LAB - OPTIME CLINICAL SPE CIMEN Final Result COPATH * Hep C - HIM (11/14/2018) Hep C HIM See Scanned Document [facility] Comment:Non reactive 11/14/2018 Narrative [facility] - 11/14/2018 LAB RESULT [facility] us Provider Outside LAB - HIM EXTERNAL RESULT Final Result [facility] [address] [phone] from Last 3 Months or Most Recently Relevant to Health Maintenance Advance Directives For more information, please contact: [phone] * Full Code (Latest Code Status on File) Date Activated Date Inactivated Comments 04/28/2020 6:51 AM 04/29/2020 1:56 PM All basic an d advanced life-sustaining interventions are performed as appropriate Question Answer Comments Code status determined by: Discussion with patie nt/ legal decision maker Care Teams Indoor Sports Centre Manager Relationship Specialty Start Date End Date Bernadette Saldana MD [address] [address] PCP - General 10/19/07
--- OUTSIDE RECORDS SUMMARY | 2024-08-05 21:37 | XMS_ITS | Encounter Summary ---
Author Organization [facility] Address [address] [place] [address] Care Team Providers Care Surveillance Camera Technician Name Role Phone Bernadette Saldana MD Primary Care Provider Mirella Low MD Unavailable [phone] Alan Shah MD Unavailable [phone] Jason Shearer MD Unavailable [phone] Charlette Garcia MD Unavailable [phone] Mari Conklin MD Unavailable [phone] Reason for Referral * Diagnostic Imaging Ultrasound (Routine) - Closed Specialty Diagnoses / Procedures Referred By Contdimitrios t Referred To Contact Diagnoses Supervision of high-risk of elderly multigravida resulting from in vitro fertilization, third trimester Low-lying placenta Procedures US OB >14 Weeks Follow Up [address] [place] [address] Phone: tel: fax: Referral ID Status Reason Start Date Expiration Date Visits Re quested Visits Authorized [id number] Closed 12/03/2019 12/02/2020 1 1 Encounter Details Date Type Department Care Team (Late st Contact Info) Description 12/03/2019 Orders Only [address] [place] [address] Marlys Harvey, RN Supervision of high-risk of elderly multigravida (Primary Dx); resulting from in vitro fertilization, third trimester; Low-lying placenta Social History Tobacco Use Types Packs/Day Years Used Date Smoking Tobacco: Former Cigarettes Q uit: 06/28/2007 Smokeless Tobacco: Former Alcohol Use Standard Drinks/Week Comments No 0 (1 standard drink = 0.6 oz pur e alcohol) PHQ-2 Answer Date Recorded PHQ-2 Score 0 10/23/2019 Comments Yes Sex and Gender Information Value Date Recorded Sex Assigned at Not on file 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 No / Unsure 11/30/2019 1:19 PM CDT documented as of this encounter Plan of Treatment Not on file documented as of this encounter Procedures Procedure Name Priority Date/Time Associated Diagnosis Comments US OB BIOPHYSICAL PROFILE WO NST WO MEASURE Routine 03/28/2020 9:54 AM FURNITURE TECHNICIAN Supervision of high-risk of elderly multigravida documented in this encounter Results * US Biophys Prof w/o Non Stress Test (03/28/2020 9:54 AM FURNITURE TECHNICIAN) Anatomical Region Laterality Modality Abdomen/Pelvis Ultrasound Impressions 03/28/2020 12:19 PM FURNITURE TECHNICIAN [place] Gestation. FHR: 130 bpm Amniotic Fluid: 7.43 cm MVP presentation: Cephalic Placenta: Anterior BIOPHYSICAL PROFILE body movements: Normal (2) tone: Normal (2) breathing movements: Normal (2) Amniotic fluid volume: Normal (2) BPP Score: 8/8 Type of ultrasound performed: Transabdominal and Limited OB Amniotic fluid: wnl Biophysical Profile: reassuring 09/14 Dr. Elyssa Morales, DO Obstetrics and Gynecology [facility] Narrative 03/28/2020 12:19 PM FURNITURE TECHNICIAN [facility] Obstetrics and Gynecology ULTRASOUND - OB BIOPHYSICAL PROFILE (BPP)- Transabdominal Referring Provider: Charlette Garcia MD INDICATIONS FOR ULTRASOUND: OB History: Present Conditions: AMA, BPP CLINICAL INFORMATION EDC: 24 Apr 2020 EGA: 36 w 1d us Charlette Garcia MD IMG US ORDERABLES Final R esult * (ABNORMAL) US OB >14 Weeks Follow Up (03/14/2020 3:16 PM FURNITURE TECHNICIAN) Anatomical Region Laterality Modality Abdomen/Pelvis Ultrasound Impressions 03/16/2020 5:38 PM FURNITURE TECHNICIAN [place] Gestation. presentation: Transverse Placenta: Left Lateral, no previa, > 2 cm from internal os Grade: 0 MEASUREMENTS BPD 8.96 cm 36w2d 94.1% HC 32.90 cm 37w3d 89.6% AC 32.67 cm 36w4d 97.5% FL 6.37 cm 32w6d 13.2% HL 5.62 cm 32w5d 21.2% Heart Rate 134 bpm Amniotic fluid 7.76 cm MVP EFW (lbs/oz) 6 lbs 1ozs EFW (g) 2748 g 85.6% EDC: 04/17/20 GA by Current Scan: 35w1d correspond SURVEY Visualized: 4 Chamber Heart, Stomach, Kidneys, Bladder and Suboptimal views due to Poor Visualization Due To: position. MATERNAL ANATOMY Right Ovary: Visualized Left Ovary: Not visualized *Other Findings: placenta tip to cx anteriorly: 5.2cm Posteriorly: 2.6 cm Limited follow up obstetrical ultrasound using realtime transabdominal scanning. No gross anomalies observed; corresponding menstrual and sonographic dates. Maternal Uterus appears Normal Maternal ovaries were not visualized. Amniotic fluid assessment is: Normal. growth shows: satisfactory interval growth overall (85.6%), with AC measurement 97.5%tile. The placenta is no longer low lying, with the posterior edge to cervix measurement >2cm. Note, transverse presentation. Mari Conklin MD Obstetrics and Gynecology [facility] Narrative 03/16/2020 5:38 PM FURNITURE TECHNICIAN [facility] Obstetrics and Gynecology ULTRASOUND - OB FOLLOW UP > 14 Weeks- Transabdominal and transvaginal Referring Provider: Charlette Garcia MD INDICATIONS FOR ULTRASOUND: OB History: Present Conditions: Advance Maternal Age (35+) Low lying placenta. EFW CLINICAL INFORMATION LMP: - sure EDC: 24 Apr 2020 EGA: 34w 1d Previous US: Yes EDC: 24 Apr 2020 correspond us Charlette Garcia MD G US ORDERABLES Final R esult documented in this encounter Visit Diagnoses Diagnosis Supervision of high-risk of elderly multigravida- Primary resulting from in vitro fertilization, third trimester Low-lying placenta Hemorrhage from placenta previa, unspecified as to episode of care Supervision of high-risk of elderly multigravida resulting from in vitro fertilization, third trimester Low-lying placenta Hemorrhage from placenta previa, unspecified as to episode of care documented in this encounter Additional Health Concerns Infection Onset Date Last Indicated Resolved Time COVID-19 02/20/2020 02/20/2020 03/12/2020 11:3 9 PM FURNITURE TECHNICIAN documented as of this encounter Care Teams Surveillance Camera Technician Relationship Specialty Start Date End Date Bernadette Saldana MD [address] [address] PCP - General 10/19/07 Mirella Low MD [address] [place] [address] Assigned OBGYN Provider 11/30/1912/21 Alan Shah MD [address] [id number] Assigned OBGYN Provider 12/23/19 Jason Shearer MD [address] [address] Assigned OBGYN Provider 03/02/20 Charlette Garcia MD [address] [facility], [address] [address] Assigned OBGYN Provider 03/09/20 Mari Conklin MD [address] [place] [address] Assigned OBGYN Provider 09/26/21 documented as of this encounter
--- OUTSIDE RECORDS SUMMARY | 2024-08-05 21:37 | XMS_ITS | Encounter Summary ---
Author Organization [facility] Address [address] [place] [address] Care Team Providers Care Wind Project Manager Name Role Phone Bernadette Saldana MD Primary Care Provider Mirella Low MD Unavailable + [phone] Alan Shah MD Unavailable [phone] Jason Shearer MD Unavailable [phone] Charlette Garcia MD Unavailable [phone] Mari Conklin MD Unavailable [phone] Encounter Details Date Type Department Care Team (Late Contact Info) Description 09/29/2014 Records - [facility] CONVERSION Scan, Non-Provider Social History Tobacco Use Types Packs/Day Years Used Date Smoking Tobacco: Former Cigarettes Q uit: 06/28/2007 Alcohol Use Standard Drinks/Week Comments No 0 (1 standard drink = 0.6 oz pur e alcohol) Comments No Sex and Gender Information Value Date Recorded Sex Assigned at Not on file Legal Sex Female 4:52 AM FRONT OFFICE ATTENDANT Gender Identity Not on file Sexual Orientation Lesbian 10/16/2019 9: 45 AM CDT documented as of this encounter Plan of Treatment Not on file documented as of this encounter Visit Diagnoses Not on filedocumented in this encounter Additional Health Concerns Infection Onset Date Last Indicated Resolved Time COVID-19 02/20/2020 02/20/2020 03/12/2020 11:3 9 PM FRONT OFFICE ATTENDANT documented as of this encounter Care Teams Wind Project Manager Relationship Specialty Start Date End Date Bernadette Saldana MD [address] [place] [id number] PCP - General 10/19/07 Mirella Low MD [address] [place] [address] Assigned OBGYN Provider 11/30/1912/21 Alan Shah MD [address] [facility] [address] [place] [address] Assigned OBGYN Provider 12/23/19 Jason Shearer MD [address] [address] Assigned OBGYN Provider 03/02/20 Charlette Garcia MD [address] [address] Assigned OBGYN Provider 03/09/20 Mari Conklin MD [address] [place] [address] Assigned OBGYN Provider 09/26/21 documented as of this encounter
--- OUTSIDE RECORDS SUMMARY | 2024-08-05 21:37 | XMS_ITS | Encounter Summary ---
Author Organization [facility] Address [address] [place] [address] Care Team Providers Care Visiting Professor Name Role Phone Bernadette Saldana MD Primary Care Provider Mirella Low MD Unavailable + [phone] Alan Shah MD Unavailable [phone] Jason Shearer MD Unavailable [phone] Charlette Garcia MD Unavailable [phone] Mari Conklin MD Unavailable [phone] Encounter Details Date Type Department Care Team (Late st Contact Info) Description 12/03/2019 [facility] Only [address] [place] [id number] Marlys Harvey RN Social History Tobacco Use Types Packs/Day Years Used Date Smoking Tobacco: Former Cigarettes Q uit: 06/28/2007 Smokeless Tobacco: Former Alcohol Use Standard Drinks/Week Comments No 0 (1 standard drink = 0.6 oz pur e alcohol) PHQ-2 Answer Date Recorded PHQ-2 Score 0 10/23/2019 Comments Yes Sex and Gender Information Value Date Recorded Sex Assigned at Not on file Legal Sex Female 4:52 AM COLD MEAT CHEF Gender Identity Not on file Sexual Orientation [...] COVID-19 02/20/2020 02/20/2020 03/12/2020 11:3 9 PM COLD MEAT CHEF documented as of this encounter Care Teams Visiting Professor Relationship Specialty Start Date End Date Bernadette Saldana MD [address] [address] PCP - General 10/19/07 Mirella Low MD [address] [place] [address] Assigned OBGYN Provider 11/30/1912/21 Alan Shah MD [address] [id number] Assigned OBGYN Provider 12/23/19 Jason Shearer MD [address] [address] Assigned OBGYN Provider 03/02/20 Charlette Garcia MD [address] [address] Assigned OBGYN Provider 03/09/20 Mari Conklin MD [address] [place] [address] Assigned OBGYN Provider 09/26/21 documented as of this encounter
[2024-08-05 22:02] VITALS: BP 139/84; PULSE 66; RESP 20; TEMP 36.6; O2SAT 98
[2024-08-05 23:18] VITALS: O2SAT 97
--- NOTE | 2024-08-05 23:18 | CRLHL7_ITS ---
For Patients: As a result of the Century Cures Act, medical imaging exams and procedure reports are released immediately into your electronic medical record. You may view this report before your referring provider. If you have questions, please contact your health care provider. INDICATION: Chest pain. TECHNIQUE: Chest 2 views. COMPARISON: None. FINDINGS: Cardiovascular and mediastinum: Heart size and vasculature are normal in caliber and appearance. Lungs and pleural spaces: Lungs are clear. No sign of infiltrate or mass. No sign of pleural effusion. No pneumothorax. Bones and soft tissues: No significant findings. IMPRESSION: No acute cardiopulmonary abnormality. Dictated by Sandro Andrews MD @ 08/05/2024 11:57:59 PM (Electronically Signed)
--- NOTE | 2024-08-05 23:23 | ED.GENADULT ---
HPI - General Adult General Chief complaint: Chest Pain Stated complaint: Chest Tightness Nausea Time Seen by Provider: 08/05/24 23:02 Source: patient Mode of arrival: ambulatory Limitations: no limitations History of Present Illness HPI narrative: 44-year-old, generally healthy female presents today with palpitations and chest pressure. Patient states that she has felt palpitations on and off for quite some time however in the last couple of weeks it is daily. Sometimes when it comes she has to catch her breath. Does not make her feel nauseated and does not cause chest pain until today. She states that she got off of a flight and when she got in the car she felt palpitations and she felt quite nauseated and felt a chest pressure. She also developed an instant headache when this occurred. She states that she has felt more tired in the last couple of weeks which is very unusual for her - she is very physically fit person. Patient takes Prozac, no other medications. No recent illness. She does not feel short of breath. She is currently not nauseated. Headache feels better. She denies any focal neurologic deficits, no blurry or double vision, no ringing in her ears. No word-finding difficulty. Patient is healthy, takes no medications. Exercises regularly. No history of heart disease. She denies tobacco use or alcohol use. She denies any family history of coronary artery disease. Related Data Previous Rx's ?Medication ?Instructions ?Recorded albuterol sulfate 90 mcg/actuation 2 puff inhalation Q4-6H PRN 11/13/23 aerosol inhaler shortness of breath or wheezing #8.5 grams benzonatate 100 mg capsule 100 mg PO TID PRN cough #30 caps 11/13/23 Allergies Allergy/AdvReac Type Severity Reaction Status Date / Time No Known Drug Allergies Allergy Verified 08/05/24 22:02 Review of Systems Status of ROS: Reports: 10 or more systems reviewed and unremarkable except as noted in History and below PFSH PFS Social History Smoking Status: Former smoker What tobacco products do you use: cigarettes Smoking quit date/years: >15 years ago How often do you have a drink containing alcohol: never AUDIT-C Alcohol total score: 0 Non-prescribed substance use: denies use Exam Narrative: Exam Narrative: Well-nourished well-developed patient in no acute distress. Alert and oriented. Answers questions appropriately. Mood and affect are appropriate. Thoughts are goal oriented and rational. No tangential or magical thinking noted. Patient speaks in full sentences without needing to catch her breath. HEENT: Normocephalic atraumatic. Pupils are equally round reactive to light. Extraocular muscles are intact. Conjunctivae are moist without any icterus noted. Moist mucous membranes. Posterior pharynx is normal. Neck is soft without any lymphadenopathy or thyromegaly. No masses are appreciated. Cardiovascular: Heart is regular rate and rhythm S1 and S2 are present without any murmurs. Lungs: Clear to auscultation bilaterally no wheezes rhonchi or rales are appreciated. Patient takes deep breaths without any discomfort. Abdomen: Soft and nontender nondistended with normal bowel sounds. Extremities: Bilateral lower extremities are without edema. Normal DP and PT pulses. Skin: Well perfused without any obvious rashes. Const: Vital Signs, click to edit/add: Vital Signs - 24 hr 08/05/24 22:02 08/05/24 23:18 Temperature 97.8 F Pulse Rate [Pulse Oximeter] 66 Respiratory Rate 20 Blood Pressure [[facility]] 139/84 Pulse Oximetry 98 97 Oxygen Delivery Me thod Room Air Course Course ED Course: Patient was placed on a heart monitor. EKG, read by me, shows normal sinus rhythm with premature atrial complexes, pulse 61. Normal QRS and QTC intervals. Chest x-ray, read by me, does not show any acute pathology. Blood work unremarkable. hall monitor shows frequent PACs. Vital Signs Vital signs: Initial Vital Signs Temperature 97.8 F 08/05/24 22:02 Temperature Source Temporal Artery Scan 08/05/24 22:02 Pulse Rate 66 08/05/24 22:02 Respiratory Rate 20 08/05/24 22:02 Blood Pressure 139/84 08/05/24 22:02 Blood Pressure Mean 102 08/05/24 22:02 Pulse Oximetry 98 08/05/24 22:02 Oxygen Delivery Method Room Air 08/05/24 22:02 Vital Signs Temperature 97.8 F 08/05/24 22:02 Pulse Rate 66 08/05/24 22:02 Respiratory Rate 20 08/05/24 22:02 Blood Pressure 139/84 08/05/24 22:02 Pulse Oximetry 98 08/05/24 22:02 Oxygen Delivery Method Room Air 08/05/24 22:02 Temperature 97.8 F 08/05/24 22:02 Pulse Rate 66 08/05/24 22:02 Respiratory Rate 20 08/05/24 22:02 Blood Pressure 139/84 08/05/24 22:02 Pulse Oximetry 97 08/05/24 23:18 Oxygen Delivery Method Room Air 08/05/24 22:02 Medical Decision Making MDM Narrative Medical decision making narrative: Generally healthy 44-year-old female with frequent PACs. Given the frequency of her PACs I do think that a Holter monitor would be a good next step for her. Patient will follow-up with her primary care provider to get this done. Lab Data Lab results reviewed: Yes I reviewed the patient's lab results Labs: Lab Results 08/05/24 Range/Units 23:35 WBC 9.68 (4.50-11.00) K/uL RBC 3.99 L (4.00-5.20) m/uL Hgb 12.1 (12.0-16.0) gm/dL Hct 36.6 (33.0-51.0) % MCV 92 (80-100) fL MCH 30 (26-34) pg MCHC 33 (32-36) gm/dL RDW Coeff of [place] 13.1 (11.5-15.5) % Plt Count 271 (140-440) K/uL Neut % (Auto) 76.1 H (42.0-72.0) % Lymph % (Auto) 17.3 L (20-44) % [place] % (Auto) 4.0 (0.0-11.0) % Eos % (Auto) 1.1 (0.0-7.0) % Baso % (Auto) 0.4 (0.0-3.0) % Neut # (Auto) 7.40 H (1.7-7.0) K/uL Lymph # (Auto) 1.70 (0.90-2.90) K/uL [place] # (Auto) 0.40 (0.00-0.90) K/UL Eos # (Auto) 0.11 (0.00-0.50) K/uL Baso # (Auto) 0.04 (0.00-0.30) K/uL Abs Immat Gran (auto) 0.11 (0.00-0.30) K/uL Imm/Tot Granulo (auto) 1.1 % D-Dimer Quant (PE/DVT) 0.41 (0.00-0.50) ug/ml Sodium 136 (135-149) mmol/L Potassium 3.9 (3.6-5.1) mmol/L Chloride 102 (96-114) mmol/L Carbon Dioxide 25 (20-32) mmol/L Anion Gap 9 (7-15) mEq/L BUN 19 (5-24) mg/dL Creatinine 0.8 (0.5-1.5) mg/dL Estimated GFR 92 ml/min Glucose 118 H (60-115) mg/dL Calcium 9.1 (8.4-10.6) mg/dL Magnesium 1.9 (1.5-2.6) mg/dL Total Bilirubin 0.4 (0.1-1.5) mg/dL Direct Bilirubin 0.1 (0.0-0.5) mg/dL AST 33 (12-35) U/L ALT 31 (4-35) U/L Alkaline Phosphatase 55 (40-150) U/L Troponin I < 0.01 (0.01-0.04) ng/mL C-Reactive Protein < 0.5 L (0.5-1.0) mg/dL Total Protein 6.8 (6.0-8.3) g/dL Albumin 4.2 (3.3-5.0) g/dL Lipase 73 (23-300) U/L TSH 1.300 (0.270-4.20) uIU/mL Imaging Data Chest x-ray: Attestation: I have reviewed the pertinent imaging results. Radiologist's impression: TECHNIQUE: Chest 2 views. COMPARISON: None. FINDINGS: Cardiovascular and mediastinum: Heart size and vasculature are normal in caliber and appearance. Lungs and pleural spaces: Lungs are clear. No sign of infiltrate or mass. No sign of pleural effusion. No pneumothorax. Bones and soft tissues: No significant findings. IMPRESSION: No acute cardiopulmonary abnormality. ECG Data Attestation: I personally reviewed and interpreted this ECG as follows: Discharge Plan Discharge Clinical Impression: PAC (premature atrial contraction) Patient Disposition: Home, Self-Care Condition: Stable Additional Instructions: Your palpitations are caused by premature atrial complexes. This is a benign and common condition. Because of the frequency with which they come, I do recommend you follow-up with your primary care provider and discuss doing a 24-48 hour Holter monitor (heart monitor) to assess their frequency. Prescriptions: No Action albuterol sulfate 90 mcg/actuation HFA aerosol inhaler 2 puff inhalation Q4-6H PRN (Reason: shortness of breath or wheezing) Qty: 8.5 0RF benzonatate 100 mg capsule 100 mg PO TID PRN (Reason: cough) Qty: 30 1RF Follow Up/Referrals: Provider,Not a Local [Non-Staff, Family Practice] Stand Alone Forms: Interface [employer] Info Instructions
[2024-08-05 23:43] LABS: Basophils Absolute Auto 0.04 K/uL (0.00-0.30); Basophils Percent Auto 0.4 % (0.0-3.0); Eosinophils Absolute Auto 0.11 K/uL (0.00-0.50); Eosinophils Percent Auto 1.1 % (0.0-7.0); Hematocrit 36.6 % (33.0-51.0); Hemoglobin* 12.1 gm/dL (12.0-16.0); Immature Granulocytes Abs Auto 0.11 K/uL (0.00-0.30); Immature Granulocytes Pct Auto 1.1 %; Lymphocytes Percent Auto 17.3 % (20-44); Mean Corpuscular HGB Conc 33 gm/dL (32-36); Mean Corpuscular Hemoglobin 30 pg (26-34); Mean Corpuscular Volume 92 fL (80-100); Neutrophils Percent Auto 76.1 % (42.0-72.0); Platelet Count* 271 K/uL (140-440); RDW Coefficient of Variation % 13.1 % (11.5-15.5); Red Blood Count 3.99 m/uL (4.00-5.20); White Blood Count* 9.68 K/uL (4.50-11.00)
[2024-08-05 23:51] LABS: Slide Review Reflex No
[2024-08-05 23:54] LABS: Albumin* 4.2 g/dL (3.3-5.0); Chloride* 102 mmol/L (96-114)
[2024-08-05 23:55] LABS: Potassium* 3.9 mmol/L (3.6-5.1); Sodium* 136 mmol/L (135-149)
[2024-08-05 23:57] LABS: Blood Urea Nitrogen* 19 mg/dL (5-24); Creatinine* 0.8 mg/dL (0.5-1.5); Estimated Glomerular Filt Rate 92 ml/min
[2024-08-05 23:58] LABS: Alanine Aminotransferase* 31 U/L (4-35); Alkaline Phosphatase* 55 U/L (40-150); Anion Gap 9 mEq/L (7-15); Aspartate Amino Transferase* 33 U/L (12-35); Bilirubin Direct* 0.1 mg/dL (0.0-0.5); Bilirubin Total* 0.4 mg/dL (0.1-1.5); Calcium* 9.1 mg/dL (8.4-10.6); Carbon Dioxide* 25 mmol/L (20-32); Glucose* 118 mg/dL (60-115); Lipase* 73 U/L (23-300); Magnesium* 1.9 mg/dL (1.5-2.6); Total Protein* 6.8 g/dL (6.0-8.3)
[2024-08-06 00:03] LABS: C Reactive Protein* < 0.5 mg/dL (0.5-1.0)
[2024-08-06 00:13] LABS: D Dimer Quantitative* 0.41 ug/ml (0.00-0.50); Troponin I* < 0.01 ng/mL (0.01-0.04)
== END 2024-08-06 01:08 | disposition home or self-care (01) ==
PROVIDERS: Emergency Provider Family Medicine; PCP Family Medicine
DX: I49.1 Atrial premature depolarization (principal); R51.9 Headache, unspecified; R06.02 Shortness of breath; R11.0 Nausea
CPT/HCPCS: 36415; 71046; 80048; 80076; 83690; 83735; 84443; 84484; 85025; 85379; 86140; 93005; 94761; 99284; 99285